=== PATIENT | male | born 1995 | race Caucasian/White ===

== ENCOUNTER 2025-01-18 08:30 | Day surgery (SDC) | payer BC ==
[2025-01-11 10:45] LABS: MEAN PLATELET VOLUME 8.8 FL (7.4-10.4); PRE OP HEMATOCRIT 45.6 % (42.0-52.0); PRE OP HEMOGLOBIN 15.4 g/dL (14.0-17.9); PRE OP PLATELET COUNT 343 X10'3 (140-440); PRE OP WHITE BLOOD COUNT 6.3 10'3 (4.8-10.8); RED CELL DISTRIBUTION WIDTH 14.1 % (11.5-14.5)
[2025-01-11 11:09] LABS: CREATININE 0.99 MG/DL (0.60-1.10); PRE OP ALT 49 U/L (30-65); PRE OP ANION GAP 10 (8-16); PRE OP AST 23 U/L (10-37); PRE OP BILIRUB, TOTAL 0.4 MG/DL (0.0-1.0); PRE OP GLUCOSE 92 MG/DL (70-104); PRE OP POTASSIUM 4.0 MMOL/L (3.4-5.1); PRE OP SODIUM 144 MMOL/L (135-145); TOTAL CARBON DIOXIDE 25.2 MMOL/L (24-32); eGFR 89 ML/MIN
[~2025-01-18] VITALS: Ht 170.2 cm; Wt 79.4 kg
[2025-01-18] VITALS (7 sets, daily range): BP systolic 112–144; BP diastolic 52–85; PULSE 59–72; RESP 15–25; TEMP 97.8; O2SAT 93–98
[~2025-01-18 08:30] MED LIST: NO HOME MEDS; ringers solution, lacted 1,000 ML IV SCH
[2025-01-18] MEDS: ceFAZolin 2gm/dext,iso 50mL 50 ML IV ONE (09:06)
[2025-01-18] MEDS ORDERED: labetalol 20mg/4ml (5mg/ml) syringe IV PRN (10:25)
[2025-01-18] MEDS ORDERED: morphine 4 MG/ML inj SYRINge IV PRN (10:25)
[2025-01-18] MEDS ORDERED: ondansetron/PF 4mg/2ml inj IV PRN (10:25)
[2025-01-18] MEDS ORDERED: fentaNYL/PF 50MCG/1 ML 2ML syringe IV PRN ×2 (10:25)
[2025-01-18] MEDS ORDERED: ringers solution, lacted 1,000 ML IV SCH (10:25)
[2025-01-18] MEDS ORDERED: hydrALAZINE 20mg/ml inj. IV PRN (10:25)
[2025-01-18] MEDS ORDERED: LIDOcaine 1% 30ml preserv. free vial ONE (11:12)
[2025-01-18] MEDS ORDERED: BUPIVAcaine/PF 2.5mg/ml (0.25%) 10ml vial ONE (11:12)
[2025-01-18] MEDS ORDERED: BUPIVAcaine 2.5mg/ml inj 50ml vial (contains preservative) ONE (11:12)
[2025-01-18] MEDS ORDERED: BUPIVACAINE liposomal/PF 13.3 MG/ML 10mL vial IM ONE (11:12)
[2025-01-18] MEDS ORDERED: glycopyrrolate 0.2mg/ml inj ONE (11:15)
[2025-01-18] MEDS ORDERED: propofol inj 20 ML IV ONE (11:35)
[2025-01-18] MEDS ORDERED: LIDOcaine 2% (20mg/ml) 5ml vial ONE (11:35)
[2025-01-18] MEDS ORDERED: rocuronium 10mg/ml inj IV ONE (11:36)
[2025-01-18] MEDS ORDERED: acetaminophen 1,000mg/100ml IV 100 ML IV ONE (11:37)
[2025-01-18] MEDS ORDERED: ondansetron/PF 4mg/2ml inj ONE (11:37)
[2025-01-18] MEDS ORDERED: dexamethasone sod phosphate 4mg/ml inj. ONE (11:37)
[2025-01-18] MEDS ORDERED: fentaNYL/PF 50MCG/1 ML 2ML syringe ONE (11:43)
[2025-01-18] MEDS: LIDOcaine 1% 30ml preserv. free vial IJ ONE (11:43)
[2025-01-18] MEDS ORDERED: midazolam 1 mg/ML 2ml injection ONE (11:43)
[2025-01-18] MEDS: BUPIVAcaine/PF 2.5mg/ml (0.25%) 10ml vial IJ ONE (11:43)
[2025-01-18] MEDS: BUPIVAcaine/PF 2.5 mg/ml (0.25%) 30ml vial IJ ONE (11:43)
[2025-01-18] MEDS: BUPIVACAINE liposomal/PF 13.3 MG/ML 10mL vial IM ONE (11:44)
[2025-01-18] MEDS ORDERED: metoprolol tartrate 1mg/ml inj IV ONE (11:50)
[2025-01-18] MEDS ORDERED: oxyCODONE/APAP 5-325mg tablet PO PRN (12:55)
--- NOTE | 2025-01-18 12:57 | OPERATIVE REPORT ---
Operative Report Providers to CC CC: TRIP GASTELUM MD ~ Date of Procedure: Jan 18, 2025 Pre-Operative Diagnosis: Ventral hernia Post-Operative Diagnosis 3 cm ventral hernia Procedure Performed Robotic assisted, laparoscopic 3 cm ventral hernia repair with mesh (transabdominal preperitoneal approach) Bilateral transversus abdominis plane nerve blocks by injection using 266 mg of Exparel Surgeon: Trip Gastelum MD FACS Geosciences Associate Professor None Anesthesiologist: Christian Soriano Type of Anesthesia: General Findings: 3 cm fascial defect just above the level of the umbilicus with herniated preperitoneal fat and a moderate-sized hernia defect Wound class I Complications None Prosthetics\Implants used: 10 x 10 cm ProGrip mesh placed in the preperitoneal space Estimated Blood Loss: Minimal Specimen Removed: None Description of Procedure: Patient was brought to the operating room and identified by the nursing staff and the attending physician. Patient was placed supine and a general anesthesia was induced. Preoperative antibiotics were given. The abdomen was prepped and draped in the standard sterile fashion. Through a left subcostal stab incision the abdomen was accessed with a Veress needle technique. Abdomen was insufflated without incident. The incision was lengthened to accommodate a 12 mm optical trocar and the abdomen was entered under laparoscopic visualization. The abdomen was surveyed laparoscopically. There was an obvious hernia defect in the abdominal midline near the umbilicus. No herniated intra- abdominal contents but the proximal falciform ligament appeared to be herniated through the defect. Under laparoscopic visualization, robotic trochars were placed in the left lateral and left lower quadrant. The da Sg robotic arm was docked to the patient and instruments guided intra-abdominally under laparoscopic visualization. Mesh and suture were passed into the abdomen. A preperitoneal rent was created about 10 cm lateral to the midline and a dissection plane in the preperitoneal space was created/developed. Pocket planned was about 11 x 11 cm. The preperitoneal pocket was developed and dissection continued toward the midline until herniated and incarcerated preperitoneal fat was encountered. This was mobilized and reduced with a moderate-sized hernia sac revealing a 3 x 2 cm fascial defect. Further dissection out to the right and lateral was created until the dimensions necessary for mesh placement were obtained. Midline defect was closed with absorbable V lock suture. A 10 x 10 cm ProGrip mesh was passed into the preperitoneal space and unfolded, centered at the repaired defect. Mesh laid without wrinkles or folds. Pocket and peritoneal rent were closed with a running absorbable suture. Crockett were retrieved. The da Sg instruments were then removed and the robot undocked from the patient. Bilateral transversus abdominis plane nerve blocks by injection were then placed under laparoscopic visualization using a combination of Marcaine and 266 mg of Exparel. The left subcostal trocar was removed and its fascia closed percutaneously with 0 Vicryl suture under laparoscopic visualization. Remaining trochars were removed after the abdomen was allowed to deflate. Skin was closed at all sites with 4-0 Monocryl sutures and dressed with sterile dressings. Patient was awakened and taken to the postanesthesia care unit in stable condition. Counts repoted as correct: Yes TRIP GASTELUM MD Jan 18, 2025 12:56
== END 2025-01-18 14:00 | disposition home or self-care (01) ==
LOC: PAS 08:30
PROVIDERS: ATTEND Surgery
DX: K43.6 Other and unspecified ventral hernia with obstruction, without gangrene (principal); F17.290 Nicotine dependence, other tobacco product, uncomplicated; F12.90 Cannabis use, unspecified, uncomplicated
CPT/HCPCS: 36415; 49594; 64488; 80053; 82948; 85025; C1781; J0131; J0666; J1100; J2003; J2250; J2405; J2704; J2710; J3010; J3490; J7030; J7120; Z7506; Z7508; Z7512; A4215; A4618